=== PATIENT | male | born 1955 | race Caucasian/White ===

== ENCOUNTER 2020-02-25 11:54 | Outpatient (CLI) | payer MEDICARE, SELFPAY ==
--- NOTE | ~2020-02-25 | CT_ITS ---
EXAMINATION: CT brain wo con EXAM DATE: 02/25/2020 12:17 INDICATION: Headache getting more intense. States history of spinal meningitis 2010. TECHNIQUE: Spiral CT of the head was performed without contrast. Axial, coronal and sagittal images were reviewed. The dose-length product (DLP) for this examination was 605.33 mGy-cm. The exposure w as tailored according to patient size, and iterative reconstruction (ASIR) was used as additional dos e reduction technique. Comparison is made to prior examination from 12/10/2010. FINDINGS: There is no acute intraparenchymal hemorrhage. No evidence of intraparenchymal brain mass lesion. No evidence of acute infarction. There is no mass effect or midline shift. The ventricles are normal in size. There are no extra-axial collections. There are no acute calvarial fractures. T he orbits are unremarkable. Soft tissue is unremarkable. The visualized sinuses and mastoid air elaine ls are well aerated. IMPRESSION: 1. Unremarkable head CT examination. Reviewed, dictated and finalized at location A.
== END 2020-02-25 11:55 | disposition home or self-care (01) ==
PROVIDERS: PCP Family Medicine; Visit Provider Nurse Practitioner Family
DX: R51 Headache (principal); Z86.79 Personal history of other diseases of the circulatory system; Z86.61 Personal history of infections of the central nervous system
CPT/HCPCS: 70450

== ENCOUNTER 2022-01-16 19:50 | Emergency (ER) | payer MEDICARE, MEDICAID, SELFPAY ==
--- NOTE | ~2022-01-16 | XR_ITS ---
EXAM: XR forearm LT 2V DATE: 01/16/2022 19:59 HISTORY: tree limb fell onto left forearm . COMPARISON: Left wrist x-ray 02/22/2011. FINDINGS: Normal mineralization. No acute fracture or dislocation. No lytic or blastic lesion. Degen erative change at the elbow and wrist joints. Triceps enthesopathy. No erosion or periosteal change. Posterior soft tissue swelling. IMPRESSION: No acute osseous finding in the left forearm. Reviewed, dictated and finalized at location K.
--- NOTE | 2022-01-16 19:53 | ED.UPPEXIN ---
HPI - Extremity Injury (Upper) General Stated Complaint: INJURED L ARM Time Seen by Provider: 01/16/22 19:53 Source: patient Mode of arrival: ambulatory Limitations: no limitations History of Present Illness HPI narrative: Mr. Castro is a 66-year-old male patient presenting to the clinic today with complaints of left forearm pain after a 4 inch in diameter approx 70lb tree limb fell on his arm. He reports that he was cutting tree limbs when this fell on his arm as he was protecting his head. States that it instantly became swollen and painful to the left proximal forearm. He denies any wounds or cuts. He has an ice pack applied to the affected area. Related Data Home Medications Medication Instructions Recorded Confirmed aspirin 325 mg tablet 325 mg PO DAILY 06/03/19 01/01/22 Allergies Allergy/AdvReac Type Severity Reaction Status Date / Time levofloxacin Allergy Mild Rash Verified 01/01/22 12:30 [place] Seed Allergy Mild Rash Uncoded 01/01/22 12:30 Review of Systems Review of Systems: Pertinent positives per HPI. Patient denies any fever, chills, rash, headache, visual changes, dizziness, cough, runny nose, sore throat, shortness of breath, chest pain, palpitations, nausea, vomiting, diarrhea, constipation, abdominal pain, or any urinary issues. 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 There is no relevant family history pertinent to the patient complaint. Exam Narrative: General: Well-developed, well nourished, in no apparent distress Head: Normocephalic, atraumatic. Cardio: Regular rate and rhythm, s1 and s2 normal, no murmur appreciated. Resp: Clear to auscultation bilaterally, no rhonchi, rales, wheezing or rubs. Musculoskeletal: No deformity, swelling/bruising noted to the proximal left forearm, tender to palpation over the proximal left forearm, grossly normal range of motion, muscle strength strong and equal, peripheral pulse strong, no cyanosis, normal gait and station Course Course Emergency Course: Portions of this record may have been created with voice recognition software. Level of Care: Express Care Visit Vital Signs Vital signs: Vital signs reviewed MDM - Extremity Injury (Upper) MDM Narrative Medical decision making narrative: At the time of visit patient is resting comfortably on the exam table. X-ray was performed and was negative for any fracture or malalignment. I suspect patient has soft tissue injury/contusion to the left forearm. Marco wrap was applied and supportive measures were discussed with the patient he voiced understanding of discharge instructions and agrees to the treatment plan. Differential Diagnosis Differential diagnosis: Likely other (Forearm fracture, soft tissue injury, contusion) Imaging Data Attestation: I personally reviewed and interpreted this imaging study as follows: My impression: Negative for fracture of the left forearm Radiologist's impression: [facility] [id number]
[2022-01-16 20:04] VITALS: BP 118/75; PULSE 78; RESP 16; TEMP 36.8; O2SAT 97
== END 2022-01-16 20:19 | disposition home or self-care (01) ==
PROVIDERS: Emergency Provider Nurse Practitioner Family; PCP Family Medicine
DX: S50.12XA Contusion of left forearm, initial encounter (principal); W20.8XXA Other cause of strike by thrown, projected or falling object, initial encounter; E78.2 Mixed hyperlipidemia; G62.9 Polyneuropathy, unspecified; Z87.891 Personal history of nicotine dependence
CPT/HCPCS: 73090; 99213; G0463

== ENCOUNTER → 2022-09-23 14:31 | Outpatient (CLI) | payer MEDICARE, MEDICAID, SELFPAY ==
--- NOTE | ~2022-09-23 | XR_ITS ---
XR cervical spine min 6V DATE: 09/23/2022 15:36 INDICATION: Neck pain TECHNIQUE: Flexion, extension and neutral lateral views. AP and open-mouth projections. Swimmer view. COMPARISON: None FINDINGS: C1 and C2 are normally aligned and the odontoid process is intact. No fracture or dislocati on or locked facet or prevertebral soft tissue swelling. Cervical interspaces are relatively preserve d. No instability on flexion or extension. IMPRESSION: No significant abnormality Reviewed, dictated and finalized at location B. IMPRESSION: No significant abnormality
--- NOTE | ~2022-09-23 | XR_ITS ---
XR hip BI 2V w AP pelvis DATE: 09/23/2022 15:36 INDICATION: Chronic bilateral hip pain TECHNIQUE: AP pelvis. AP and lateral views of each hip. COMPARISON: None FINDINGS: No pelvic fracture or bone destruction is detected. The pubic symphysis and sacroiliac join ts are intact. No hip fracture or dislocation, avascular necrosis or bone destruction. Hip joint spaces are symmetri c and relatively preserved. IMPRESSION: No significant abnormality Reviewed, dictated and finalized at location B. IMPRESSION: No significant abnormality
--- NOTE | ~2022-09-23 | XR_ITS ---
XR knee RT 3V DATE: 09/23/2022 15:35 INDICATION: Chronic right knee pain TECHNIQUE: AP, lateral standing views, sunrise view COMPARISON: None FINDINGS: There is mild tricompartment osteoarthritis. There is enthesopathy of the superior pole of patella at the quadriceps tendon insertion. No fracture or dislocation or joint effusion. No periosteal reaction or bone destruction. No radiopaq ue intra-articular loose body or chondrocalcinosis. IMPRESSION: Mild tricompartment osteoarthritis Reviewed, dictated and finalized at location B.
--- NOTE | ~2022-09-23 | XR_ITS ---
XR knee LT 3V DATE: 09/23/2022 15:35 INDICATION: Chronic left knee pain TECHNIQUE: [place] and standing AP and lateral views COMPARISON: None FINDINGS: Mild suprapatellar knee joint effusion. There is mild tricompartment osteoarthritis. No fracture or dislocation, periosteal reaction or bone destruction. No radiopaque intra-articular lo ose body or chondrocalcinosis. IMPRESSION: Mild tricompartment osteoarthritis Knee joint effusion Reviewed, dictated and finalized at location B.
== END ==
PROVIDERS: PCP Family Medicine; Visit Provider Family Medicine
DX: M62.838 Other muscle spasm (principal); M17.0 Bilateral primary osteoarthritis of knee; M25.552 Pain in left hip; M25.551 Pain in right hip; M25.462 Effusion, left knee
CPT/HCPCS: 72052; 73521; 73562

== ENCOUNTER 2022-11-13 11:24 | Outpatient (CLI) | payer MEDICARE, MEDICAID, SELFPAY ==
--- NOTE | ~2022-11-13 | XR_ITS ---
EXAMINATION: XR chest 2V 11/13/2022 11:47 INDICATION: Acute bronchitis. Cough. PROCEDURE: 2 view chest COMPARISON: Comparison to multiple prior studies sequentially, with oldest reviewed study dated 12/25. FINDINGS: The lungs are clear. The cardiomediastinal silhouette is within normal limits. There are no pleural effusions. There is no pneumothorax suspected. IMPRESSION: 1: NO ACUTE CARDIOPULMONARY DISEASE. Reviewed, dictated and finalized at location B.
== END 2022-11-13 11:25 | disposition home or self-care (01) ==
PROVIDERS: PCP Family Medicine; Visit Provider Physician Assistant Medical
DX: J20.9 Acute bronchitis, unspecified (principal)
CPT/HCPCS: 71046

== ENCOUNTER 2023-01-30 07:15 | Day surgery (SDC) | payer MEDICARE, MEDICAID, SELFPAY ==
[2022-10-15 14:27] VITALS: BMI 32.6
[2022-11-12 10:11] VITALS: BMI 31.6
[2023-01-15 11:07] VITALS: BMI 31.6
[2023-01-30 07:35] VITALS: BP 131/82; PULSE 85; RESP 16; TEMP 36.8; O2SAT 96
--- NOTE | 2023-01-30 08:07 | WPDANESEPPF ---
Anes - Initial Pre Proc Eval Procedure: Operation Date: 01/30/23 09:00 Proposed Procedures p Diagnostic Colonoscopy - Humble Worrell MD Date/Time: 01/30/23 08:07 Surgeon: Humble Worrell MD Pre Op Diagnosis: Functional Diarrhea Patient Data Age: 67 Gender: M Height: 1.83 m Weight: 103.1 kg Last Vital Signs Temp 36.8 C 01/30/23 07:35 Pulse 85 01/30/23 07:35 Resp 16 01/30/23 07:35 BP 131/82 01/30/23 07:35 Pulse Ox 96 01/30/23 07:35 O2 Del Method Room Air 01/30/23 07:35 Allergies Allergy/AdvReac Type Severity Reaction Status Date / Time levofloxacin Allergy Mild Rash Verified 01/30/23 07:33 sunflower seed Allergy Mild Swelling Verified 01/30/23 07:33 of Lip/Tongue/Throat cefuroxime Allergy Unknown rash Verified 01/30/23 07:33 Home Medications Medication Instructions Recorded Confirmed Type aspirin 325 mg tablet 325 mg PO DAILY 06/03/19 01/30/23 History atorvastatin 80 mg tablet 80 mg PO DAILY #90 tabs 08/05/22 01/30/23 Rx multivitamin with minerals-folic 1 tablet PO DAILY 11/12/22 01/30/23 History acid 0.4 mg tablet lansoprazole 30 mg capsule,delayed 30 mg PO DAILY #30 caps 11/29/22 01/30/23 Rx release triamcinolone acetonide 0.1 % 1 applic topical TID #80 grams 01/02/23 01/30/23 Rx topical cream fexofenadine 180 mg tablet 180 mg PO DAILY 01/15/23 01/30/23 History hydrocodone 7.5 mg-acetaminophen 1 tablet PO Q6H PRN pain #120 tabs 01/28/23 01/30/23 Rx 325 mg tablet Patient hx anesthesia problems: none Family hx anesthesia problems: none Results Review: All pre-operative results and documents have been reviewed as part of the pre-operative evaluation. [facility] Past Medical History Medical History Bilateral hand swelling Bilateral hip pain Bilateral knee pain BMI 31.0-31.9,adult BMI 32.0-32.9,adult BMI 33.0-33.9,adult BMI greater than 30 Cervical pain Choking Chronic headache Degenerative lumbar disc Diabetes type 2, controlled Diarrhea Elevated alanine aminotransferase (ALT) level Elevated glucose Foot pain, bilateral Low testosterone Lump Mixed hyperlipidemia Muscle spasm Neuropathy Tremor of both hands Family History Family History Father Diabetes mellitus Carcinoma of colon Malignant neoplasm of prostate Bone cancer Mother Leukemia Sibling Bone cancer Other Cerebrovascular accident Family history of arthritis Family history of coronary artery disease Hypertension Social History Social History Smoking packs per day: 1.5 Smoking cigarettes per day: 30.0 Years smoked: 15 Smoking pack-years: 22.50 Smoking status: Former smoker Tobacco type: cigarettes Second hand tobacco smoke exposure: No Smoking end date: 06/30/10 Alcohol intake: never Substance use: never Substance use type: does not use Lack of Transportation: No Lack of Food: Never True Current Housing: I Have Housing Concerned About Future Housing: No Difficulty Paying Gas/Electric Bills: No Difficulty Paying for Meds: No Currently Unemployed: No Education: High School Diploma/GED Difficulty w/ Childcare or Family Care: No Living arrangements: with family 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
--- NOTE | 2023-01-30 08:37 | PM.HPGS ---
History of Present Illness History of Present Illness Consent: Risks, benefits, and alternatives have been discussed and questions answered. Patient agrees to proceed with procedure. Chief complaint: Functional Diarrhea Narrative: Nehemiah Castro Sr. is a 67 year old male here for screening colonoscopy, last one more than 10 years ago. Review of Systems Constitutional: Constitutional: Denies headache(s) and Denies weakness Eyes: Eyes: Denies blurry vision ENT: Reports Normal hearing present, Denies headache(s) and Denies neck pain Cardiovascular: Cardiovascular: Denies chest pain and Denies dyspnea Respiratory: Respiratory: Denies dyspnea Gastrointestinal: Gastrointestinal: Reports no additional gastrointestinal complaints Genitourinary: Genitourinary: Denies dysuria Musculoskeletal: Musculoskeletal: Denies neck pain Integumentary/Breasts: Skin/Breast: Denies dry skin Neurologic: Reports Normal hearing present, Denies headache(s) and Denies weakness Psychiatric: Psychiatric: Denies anxiety Endocrine: Endocrine: Denies change in body appearance Hematologic/Lymphatic: Hematologic/Lymphatic: Denies easy bleeding Allergic/Immunologic: Allergic/Immunologic: Denies urticaria PMFSH Past Medical History Medical History (Updated 01/30/23 @ 08:38 by Humble Worrell MD) Bilateral hand swelling Bilateral hip pain Bilateral knee pain BMI 31.0-31.9,adult BMI 32.0-32.9,adult BMI 33.0-33.9,adult BMI greater than 30 Cervical pain Choking Chronic headache Colon cancer screening Degenerative lumbar disc Diabetes type 2, controlled Diarrhea Elevated alanine aminotransferase (ALT) level Elevated glucose Foot pain, bilateral Low testosterone Lump Mixed hyperlipidemia Muscle spasm Neuropathy Tremor of both hands Family History Family History Father Diabetes mellitus Carcinoma of colon Malignant neoplasm of prostate Bone cancer Mother Leukemia Sibling Bone cancer Other Cerebrovascular accident Family history of arthritis Family history of coronary artery disease Hypertension Social History Social History Smoking packs per day: 1.5 Smoking cigarettes per day: 30.0 Years smoked: 15 Smoking pack-years: 22.50 Smoking status: Former smoker Tobacco type: cigarettes Second hand tobacco smoke exposure: No Smoking end date: 06/30/10 Alcohol intake: never Substance use: never Substance use type: does not use Lack of Transportation: No Lack of Food: Never True Current Housing: I Have Housing Concerned About Future Housing: No Difficulty Paying Gas/Electric Bills: No Difficulty Paying for Meds: No Currently Unemployed: No Education: High School Diploma/GED Difficulty w/ Childcare or Family Care: No Living arrangements: with family Occupation/Education: retired 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 Gender identity (if verbalized by the patient): Male Spiritual care concerns: No Meds Home Medications and Allergies Home Medications Medication Instructions Recorded Confirmed Type aspirin 325 mg tablet 325 mg PO DAILY 06/03/19 01/30/23 History atorvastatin 80 mg tablet 80 mg PO DAILY #90 tabs 08/05/22 01/30/23 Rx multivitamin with minerals-folic 1 tablet PO DAILY 11/12/22 01/30/23 History acid 0.4 mg tablet lansoprazole 30 mg capsule,delayed 30 mg PO DAILY #30 caps 11/29/22 01/30/23 Rx release triamcinolone acetonide 0.1 % 1 applic topical TID #80 grams 01/02/23 01/30/23 Rx topical cream fexofenadine 180 mg tablet 180 mg PO DAILY 01/15/23 01/30/23 History hydrocodone 7.5 mg-acetaminophen 1 tablet PO Q6H PRN pain #120 tabs 01/28/23 01/30/23 Rx 325 mg tablet Allergies Allergy/AdvReac Type Severity Reaction Status Date / Time levofloxacin Allergy Mild Rash
[2023-01-30] MEDS: LACTATED RINGERS 1,000 ML 150 ML IV CONT (08:43)
[2023-01-30 08:59] VITALS: BP 105/66; PULSE 77; RESP 16; O2SAT 94
[2023-01-30 09:09] VITALS: BP 106/66; PULSE 73; RESP 16; O2SAT 97
[2023-01-30 09:19] VITALS: BP 126/78; PULSE 70; RESP 15; O2SAT 99
--- NOTE | 2023-01-30 09:42 | WPDANESPN ---
Anes - Prog Note Post-Op Date/Time: 01/30/23 09:42 Cardiovascular status: normal Respiratory status: normal Airway patency: baseline Mental status: baseline Post-Op hydration status: normal Vital Signs: Last Vital Signs Temp 36.8 C 01/30/23 07:35 Pulse 70 01/30/23 09:19 Resp 15 01/30/23 09:19 BP 126/78 01/30/23 09:19 Pulse Ox 99 01/30/23 09:19 O2 Del Method Room Air 01/30/23 09:19 Pain Score (VAS): 0/10 I/O: Intake & Output 01/29/23 01/30/23 01/30/23 23:59 07:59 15:59 Intake Total 800 Balance 800 Patient Feedback: Patient satisfied with anesthetic care.
== END 2023-01-30 09:30 | disposition home or self-care (01) ==
PROVIDERS: PCP Family Medicine; Visit Provider Internal Medicine Gastroenterology
PROC: 0DJD8ZZ Inspection of Lower Intestinal Tract, Via Natural or Artificial Opening Endoscopic (ICD-10-PCS; CPT 45378; principal; 2023-01-30 09:00)
DX: Z12.11 Encounter for screening for malignant neoplasm of colon (principal); K64.8 Other hemorrhoids
CPT/HCPCS: 45378

== ENCOUNTER → 2023-03-07 14:25 | Outpatient (CLI) | payer MEDICARE, MEDICAID, SELFPAY ==
--- NOTE | ~2023-03-07 | XR_ITS ---
EXAMINATION: XR hand LT min 3V DATE: 03/07/2023 14:47 INDICATION: Left hand effusion TECHNIQUE: Posteroanterior, oblique and lateral views of the left hand were obtained. COMPARISON: 02/22/2011 FINDINGS: Old healed fracture deformity of the left fifth metacarpal. Additional old fractures of the third and fourth metacarpals of healed with essentially no residual deformity. Alignment is otherwise normal. Polyarticular osteoarthritis, moderate severity at the distal radioulnar and first interphalangeal erasmo ints, mild to moderate severity at the first carpometacarpal and remaining interphalangeal joints and mild at the radiocarpal, triscaphe and at the midcarpal joints. No erosions to suggest inflammatory arthritis. Soft tissues are unremarkable. IMPRESSION: 1. Mild to moderate polyarticular osteoarthritis at the left hand and wrist. No acute osseous abnorma lity. Reviewed, dictated and finalized at location A. IMPRESSION: 1. Mild to moderate polyarticular osteoarthritis at the left hand and wrist. No acute osseous abnormality.
== END ==
PROVIDERS: PCP Family Medicine; Visit Provider Family Medicine
DX: M25.442 Effusion, left hand (principal); M19.042 Primary osteoarthritis, left hand
CPT/HCPCS: 73130

== ENCOUNTER 2023-03-21 13:15 | Outpatient (RCR) | payer MEDICARE, MEDICAID, SELFPAY ==
--- NOTE | 2023-03-14 14:55 | OPREHPOC ---
Outpatient Therapy Plan of Care This is a Multidisciplinary Plan of Care that may contain components documented by all disciplines (PT, OT, and ST.) PT Problem 1 PT Problem #1 Knowledge Deficit PT Goal 1 Goal [place] with home lower abdominal activation program Target Visit 4 PT Problem 2 PT Problem #2 Impaired Flexibility PT Goal 1 Goal Demonstrate minimal piriformis garcia to improve hip functional rotation Target Visit 4 PT Problem 3 PT Problem #3 Impaired Strength PT Goal 1 Goal Improve lower abdominal strength to 4-/5 to improve pelvic control Target Visit 4
--- NOTE | 2023-03-14 14:56 | PTOPEVAL1 ---
Assessment and note entered by Joshua May, PT Evaluation Information Assessment Status Evaluation Diagnosis Disc degeneration Lumbar, seperation of muscle Onset 2008 Subjective Information Reports that he was diagnosed with a diastases recti on 03/06/23. This is not painful but doctor was concerned. He is retired but is very active around his house. He was not too personally concerned with his issue, but MD and wanted him to get it checked out. Reported Pain Level Pain Score 0: Self Report Assessment PT Clinical Summary Patient presents with limited hip mobility and poor abdominal control leading to increased abdominal stress with core activation and lifting. Will benefit from skilled therapy to address transverse abdominis activation, hip ROM, and functional lifting mechanics. Required extensive education of first visit for proper exercise performance. Plan of Care Interventions Gait Training,Manual Therapy,Neuro Re-education, Patient/Caregiver Education,Therapeutic Activities, Therapeutic Exercise PT Services Indicated Yes Treatment Frequency and 1x/week for 4 weeks Duration These treatments will address the objective and functional deficits as defined above. The patient will be advanced safely and appropriately in order for the patient to progress towards his/her prior level of function. Additional exercises will be introduced and as well as a comprehensive home exercise program upon discharge, if needed, ?to ensure carryover of functional gains achieved in the clinic. This treatment plan has been reviewed and agreement upon by the patient.
--- NOTE | 2023-03-28 11:23 | PCPTNOTE ---
Pt came to therapy appt. but was too ill to do session but was afraid he was going to be charged. Pt's appt was cancelled today.
--- NOTE | 2023-04-04 10:32 | PCPTNOTE ---
Patient called to cancel this date due to illness.
--- NOTE | 2023-04-15 14:15 | PCPTNOTE ---
Patient cancelled today's appointment due to illness.
--- NOTE | 2023-06-10 13:24 | PTOPDC ---
Assessment and note entered by Joshua May, PT Evaluation Information Assessment Status Discharge - Pt Not Present Diagnosis Disc degeneration Lumbar, separation of muscle Onset 2008 Subjective Information Reports that he was diagnosed with a diastases recti on 03/06/23. This is not painful but doctor was concerned. He is retired but is very active around his house. He was not to0o personally concerned with his issue, but MD and wanted him to get it checked out. Assessment PT Clinical Summary Patient attended 2 therapy sessions and failed to return at this time. Patient will be discharged from skilled therapy. Please see last treatment note for discharge status. Plan of Care PT Services Indicated No
== END 2023-06-10 16:05 | disposition home or self-care (01) ==
LOC: ANHGOSHPT 13:15
PROVIDERS: PCP Family Medicine; Visit Provider Family Medicine
DX: M62.08 Separation of muscle (nontraumatic), other site (principal)
CPT/HCPCS: 97110; 97112; 97140; 97161

== ENCOUNTER 2023-05-04 16:43 | Emergency (ER) | payer OTHER, MEDICARE, MEDICAID, SELFPAY ==
[2023-05-04 17:04] VITALS: BP 125/69; PULSE 77; RESP 16; TEMP 36.2; O2SAT 96
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
== END 2023-05-04 17:47 | disposition short-term general hospital (02) ==
PROVIDERS: Emergency Provider Nurse Practitioner Family; PCP Family Medicine
DX: R07.9 Chest pain, unspecified (principal); V23.49XA Other motorcycle driver injured in collision with car, pick-up truck or van in traffic accident, initial encounter; Z87.891 Personal history of nicotine dependence; M51.36 Other intervertebral disc degeneration, lumbar region; E78.2 Mixed hyperlipidemia; E11.40 Type 2 diabetes mellitus with diabetic neuropathy, unspecified; Z79.82 Long term (current) use of aspirin
CPT/HCPCS: 99212; G0463

== ENCOUNTER 2023-05-04 18:12 | Emergency (ER) | payer OTHER, MEDICARE, MEDICAID, SELFPAY ==
--- NOTE | ~2023-05-04 | CT_ITS ---
Non-contrast Head CT History: Head injury COMPARISON: 02/25/2020 Technique: Axial non-contrast imaging of the brain was performed. Dose reduction technique was used on this scan by utilizing automated exposure control and iterative reconstruction technique. The dose -length product (DLP) was 681.00 mGy-cm. Findings: There is no evidence of intracranial hemorrhage, mass lesion, or acute infarct. Brain par enchyma appears normal. The ventricles and subarachnoid spaces are normal in size. The calvarium ap pears normal. The visualized paranasal sinuses and mastoid air cells are clear. Impression: No significant abnormality seen. Reviewed, dictated and finalized at location . UDER OPERATOR VERTICAL Impression: No significant abnormality seen.
--- NOTE | ~2023-05-04 | CT_ITS ---
Noncontrast CT scan of the cervical spine Technique: Multiple contiguous axial [address] images of the cervical spine were obtained and rec onstructed in 2D sagittal and coronal planes on the acquisition scanner. Dose reduction technique was used on this scan by utilizing automated exposure control, adjustment of the mA and/or kV according to patient size. The dose-length product (DLP) was 441.68 mGy-cm. Clinical History: Pain Findings: No fracture or subluxation seen in the cervical spine. There is a comminuted, essentially n ondisplaced fracture involving the posterior right first rib. The intervertebral disc spaces are pres erved. No prevertebral soft tissue swelling. Impression: No fracture or subluxation of the cervical spine. Comminuted, nondisplaced fracture the posterior right first rib. Reviewed, dictated and finalized at [facility]. MOLDER Impression: No fracture or subluxation of the cervical spine. Comminuted, nondisplaced fracture the posterior right first rib.
--- NOTE | ~2023-05-04 | CT_ITS ---
Clinical Indication: Trauma CT Scan of the Chest, Abdomen, Pelvis, Thoracic spine, and Lumbar spine without Contrast: Technique: Contiguous sections were acquired throughout the chest, abdomen, and pelvis, and the thora cic and lumbar spine, without IV contrast initiation. Dose reduction technique was used on this scan by utilizing automated exposure control and iterative reconstruction technique. The dose-length produ ct (DLP) was 1733.65 mGy-cm. Chest/abdomen/pelvis Findings: There is no evidence of any significant mediastinal, hilar or axillary lymphadenopathy. The mediastin al soft tissues appear normal. There is no evidence of pleural or pericardial effusion. The lungs are clear. No pulmonary nodules or infiltrates are noted. Nondisplaced fracture the posterior right first rib noted. The liver, spleen, pancreas, gallbladder, left adrenal gland, and kidneys are within normal limits. S mall right adrenal lipoma noted. No evidence of aortic aneurysm. No lymphadenopathy. No bowel obstruction or bowel wall thickening. There is no evidence to suggest acute appendicitis. Urinary bladder is unremarkable. Prostate gland and seminal vesicles are unremarkable. No pelvic mass seen. No ascites. Thoracic spine: There is no fracture or subluxation of the thoracic spine. Vertebral bodies maintain normal height and alignment. Intervertebral disc spaces are preserved. Flowing anterior marginal oste ophytes are present from T6 through T10, compatible with DISH. No significant disc bulge or herniation evident. No definite spinal canal stenosis or cord compressio n identified. Lumbar spine: There is no fracture or subluxation lumbar spine. Vertebral bodies maintain normal heig ht and alignment. There is advanced degenerative disc narrowing at L5-S1. There is mild degenerative disc narrowing at L1-L2. Remaining disc spaces are preserved. At L1-L2, there is no disc bulge or herniation. There is minimal facet arthropathy. No central canal stenosis or definite neural foraminal narrowing. At L2-L3, there is mild disc bulge with moderate to advanced facet arthropathy. No diogo central laith l stenosis or neural foraminal narrowing. At L3-L4, there is mild disc bulge with moderate to advanced facet arthropathy. No diogo central laith l stenosis. There is mild right neural foraminal narrowing. At L4-L5, there is mild disc bulge with moderate to advanced facet arthropathy. No central canal sten osis. There is mild to moderate left neural foraminal narrowing, and moderate right neural foraminal narrowing. L5-S1, there is minimal disc bulge. No central canal stenosis. There is severe left neural foraminal narrowing, and moderate to severe right neural foraminal narrowing. Impression: Nondisplaced fracture the posterior right first rib. No other acute posttraumatic abnormality seen in the chest, abdomen, pelvis, or thoracolumbar spine. Degenerative spondylosis of the lumbar spine, as detailed above. Reviewed, dictated and finalized at [facility]. STYLIST Impression: Nondisplaced fracture the posterior right first rib. No other acute posttraumatic abnormality seen in the chest, abdomen, pelvis, or thoracolumbar spine. Degenerative spondylosis of the lumbar spine, as detailed above.
[2023-05-04 18:22] VITALS: BP 127/66; PULSE 77; RESP 20; TEMP 36.7; O2SAT 98
[2023-05-04 20:42] VITALS: BP 133/72; PULSE 77; RESP 17; O2SAT 97
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
--- NOTE | 2023-05-04 21:17 | ECG_ITS ---
Measurements Intervals [place] Rate: 74 P: 18 LA: 153 QRS: 32 QRSD: 86 T: 35 QT: 394 QTc: 439 Interpretive Statements SINUS RHYTHM BASELINE ARTIFACT- I, II, III, AVR, AVF NORMAL ECG NO PREVIOUS ECG AVAILABLE FOR COMPARISON Electronically Signed On 05-05-2023 6:44:41 AUTOMATED TELLER MANAGER by Travis Kinney D.O.
[2023-05-04 22:34] VITALS: BP 158/82; PULSE 77; RESP 14; O2SAT 97
== END 2023-05-05 00:20 | disposition home or self-care (01) ==
PROVIDERS: Emergency Provider Physician Assistant; PCP Family Medicine
DX: S22.31XA Fracture of one rib, right side, initial encounter for closed fracture (principal); E11.9 Type 2 diabetes mellitus without complications; E78.2 Mixed hyperlipidemia; Z79.82 Long term (current) use of aspirin; Z79.899 Other long term (current) drug therapy; Z87.891 Personal history of nicotine dependence; V23.49XA Other motorcycle driver injured in collision with car, pick-up truck or van in traffic accident, initial encounter
CPT/HCPCS: 70450; 71250; 72125; 72128; 72131; 74176; 93005; 99284

== ENCOUNTER 2023-07-03 13:26 | Outpatient (CLI) | payer MEDICARE, SELFPAY ==
--- NOTE | ~2023-07-03 | XR_ITS ---
XR wrist RT min 3V DATE: 07/03/2023 14:09 INDICATION: Pain. Evaluate for inflammatory arthritis TECHNIQUE: 5 views COMPARISON: None FINDINGS: No fracture, dislocation, periosteal reaction or bone destruction, erosive change or chondr ocalcinosis. Mild osteophyte is at the first carpometacarpal joint. IMPRESSION: Mild osteoarthritis at first carpometacarpal joint Reviewed, dictated and finalized at location L. HER ASSISTANT
--- NOTE | ~2023-07-03 | XR_ITS ---
XR wrist LT min 3V DATE: 07/03/2023 14:08 INDICATION: Pain. Evaluate for inflammatory arthritis. TECHNIQUE: 4 views COMPARISON: 03/07/2023 left hand FINDINGS: Mild spurring at the radial ulnar joint. There is mild periarticular spurring at the first carpometacarpal joint. No fracture or dislocation, periosteal reaction or bone destruction is detected. No erosive change or chondrocalcinosis. IMPRESSION: Mild osteoarthritis Reviewed, dictated and finalized at location L. GE PACKER IMPRESSION: Mild osteoarthritis
--- NOTE | ~2023-07-03 | XR_ITS ---
EXAMINATION: XR hand BI arthritis min 3V DATE: 07/03/2023 14:09 INDICATION: Bilateral hand pain. Arthritis. TECHNIQUE: 4 views of right hand and 4 views of left hand were obtained. COMPARISON: Left hand radiographs 03/07/2023 FINDINGS: RIGHT HAND: Bone alignment is normal. No fracture. There is mild osteoarthritis of first carpometacar pal joint and most of the interphalangeal joints. There is moderate osteoarthritis of second and thir d distal interphalangeal joints. There is a 4 mm radiopaque foreign body dorsal to base of first dist al phalanx. LEFT HAND: Bone alignment is normal. No fracture. There is an old healed fracture of neck of fifth me tacarpal. There is mild osteoarthritis of triscaphe joint, first carpometacarpal joint, first, second , and fourth metacarpophalangeal joints, and most of the interphalangeal joints. There is moderate os teoarthritis of first interphalangeal joint. IMPRESSION: 1. Polyarticular osteoarthritis. No evidence of inflammatory arthropathy. Reviewed, dictated and finalized at location E. THE ROAD DRIVER
--- NOTE | ~2023-07-03 | XR_ITS ---
XR elbow RT min 3V DATE: 07/03/2023 14:08 INDICATION: Polyarthralgia TECHNIQUE: 4 views COMPARISON: None FINDINGS: Mild dorsal olecranon process spurring. There is osteoarthritic joint space narrowing and s purring at the elbow joint. No fracture or dislocation or joint effusion. No periosteal reaction or bone destruction. IMPRESSION: Osteoarthritis of elbow joint Mild dorsal olecranon process spurring Reviewed, dictated and finalized at location L. BLACKSMITH
--- NOTE | ~2023-07-03 | XR_ITS ---
XR elbow LT min 3V DATE: 07/03/2023 14:08 INDICATION: Polyarthralgia. Left elbow pain. TECHNIQUE: 4 views COMPARISON: None FINDINGS: Prominent dorsal olecranon process spur. There is osteoarthritic spurring and joint space narrowing at the elbow joint consistent with osteoar thritis. No recent fracture or dislocation or joint effusion, periosteal reaction or bone destruction is detected. IMPRESSION: Osteoarthritis Dorsal olecranon process spur Reviewed, dictated and finalized at location L. D HISTORY TEACHER
== END 2023-07-03 13:27 ==
PROVIDERS: PCP Family Medicine
DX: M19.042 Primary osteoarthritis, left hand (principal); M19.041 Primary osteoarthritis, right hand; M19.032 Primary osteoarthritis, left wrist; M19.031 Primary osteoarthritis, right wrist; M19.022 Primary osteoarthritis, left elbow; M19.021 Primary osteoarthritis, right elbow; M25.722 Osteophyte, left elbow; M25.721 Osteophyte, right elbow
CPT/HCPCS: 73080; 73110; 73130

== ENCOUNTER → 2023-07-28 14:17 | Outpatient (REF) | payer MEDICARE, MEDICAID, SELFPAY | LOC: ANHLAB 14:17 | PROVIDERS: PCP Family Medicine; Visit Provider Plastic Surgery | DX: S60.559A Superficial foreign body of unspecified hand, initial encounter (principal) | CPT/HCPCS: 88305; 88342 ==

== ENCOUNTER 2023-12-17 09:19 | Outpatient (CLI) | payer MEDICARE, MEDICAID, SELFPAY ==
[2023-12-17 12:44] LABS: Hematocrit 46.4 % (42.0-52.0); Hemoglobin 15.2 g/dL (14.0-18.0); Mean Corpuscular HGB Conc 32.8 g/dl (32-36); Mean Corpuscular Hemoglobin 29.9 pg (26-34); Mean Corpuscular Volume 91.2 fl (80-100); Mean Platelet Volume 10.4 fl (7.4-10.4); Platelet Count Result 231 k/mm3 (150-375); Red Blood Count 5.09 M/mm3 (4.6-6.20); Red Cell Distribution Width 12.1 % (11.5-14.5); White Blood Count 6.2 K/mm3 (4.5-10.0)
[2023-12-17 13:14] LABS: Alanine Aminotransferase 65 U/L (6-50); Albumin Level 4.1 g/dL (3.5-5.1); Alkaline Phosphatase 75 U/L (38-126); Anion Gap 6 mmol/L (4-12); Aspartate Amino Transferase 58 U/L (17-59); Bilirubin,Total 0.5 mg/dL (0.2-1.3); Blood Urea Nitrogen 18 mg/dL (9-20); Calcium 8.8 mg/dL (8.4-10.2); Carbon Dioxide 29 mmol/L (22-30); Chloride 105 mmol/L (98-107); Cholesterol 168 mg/dL (0-200); Estimated Glomerular Filt Rate > 60; Glucose 137 mg/dL (65-110); HDL Direct 26 mg/dL; Potassium 4.1 mmol/L (3.4-5.0); Sodium 140 mmol/L (137-145); Triglycerides 350 mg/dL (<150)
[2023-12-17 13:25] LABS: LDL Cholesterol Direct 76 mg/dL
[2023-12-17 13:44] LABS: Creatinine Urine 217.6 mg/dL
[2023-12-17 13:46] LABS: MALB Creatinine Ratio 3.2 mg/g (0-30); Microalbumin Urine Random 6.9 mg/L (0-16.7)
[2023-12-17 13:49] LABS: Prostate Specific Antigen 3.6 ng/mL (< OR = 4.0)
[2023-12-21 13:38] LABS: Testosterone Free 40.7 pg/mL (35.0-155.0); Testosterone Total 325 ng/dL (250-1100)
== END 2023-12-17 09:20 | disposition home or self-care (01) ==
PROVIDERS: PCP Family Medicine; Visit Provider Family Medicine
DX: Z12.5 Encounter for screening for malignant neoplasm of prostate (principal); R79.89 Other specified abnormal findings of blood chemistry; E78.2 Mixed hyperlipidemia; E11.9 Type 2 diabetes mellitus without complications; G62.9 Polyneuropathy, unspecified; R25.1 Tremor, unspecified; Z13.220 Encounter for screening for lipoid disorders
CPT/HCPCS: 36415; 80048; 80061; 80076; 82043; 82607; 84153; 84402; 84403; 84443; 85027; G0103

== ENCOUNTER 2024-08-30 16:15 | Outpatient (CLI) | payer MEDICARE, MEDICAID, SELFPAY | END 2024-08-30 16:16 | disposition home or self-care (01) | LOC: MICIMG 16:18 | PROVIDERS: PCP Family Medicine; Visit Provider Family Medicine | DX: K92.0 Hematemesis (principal) | CPT/HCPCS: 71046 ==

== ENCOUNTER 2024-09-21 00:33 | Day surgery (SDC) | payer MEDICARE, MEDICAID, SELFPAY ==
[2024-09-10 14:37] VITALS: BMI 32.8
--- NOTE | 2024-09-10 15:01 | PC.NURSE ---
Report to the Outpatient Waiting Room, entrance under the green pavilion located off [facility], at time __9:15AM___ on date ___09/21/24____. Planned Procedure Time: __11:15AM____.? Time changes happen often and if your time is changed the preop area will call you the afternoon before. - You and your visitor will be asked to self-screen and do not enter if you have any COVID symptoms. Please call surgeon if you need to reschedule. - A mask is optional within the hospital at this time. Patients may have clear liquids (water, carbonated beverages, clear teas, apple juice) until 3 hours prior to surgery (8:15AM) with a maximum of 20 ounces. - No food from midnight until time of surgery and no smoking, or chewing tobacco (or any form of nicotine). No chewing gum, candy or mints. Take only the following medications with a SIP of water on the morning of surgery: ____HYDROCODONE NEEDED FOR PAIN DO NOT STOP ANY OF YOUR OTHER PRESCRIPTION MEDICATIONS PRIOR TO SURGERY EXCEPT THE FOLLOWING Hold all vitamins and supplements for 3 days per anesthesiologist.- LAST DOSE 09/17/24 Medications to discontinue per physician __HOLD ASPIRIN 7 DAYS PRE-OP PER DR MAIN Date to take last dose 09/17/24 Please no make-up, nail thai, hairspray, perfume, deodorant, or body powder the day of surgery.? No jewelry (including any body piercings) or valuables the day of surgery, leave them at home.? Please take a shower or bath the night before, or the morning of, surgery with an antibacterial soap.? Wear comfortable, loose fitting clothing.? - Jewelry must be removed prior to entering the operating room.? Rings and piercings that are not removed may be cut off. - The hospital will not accept responsibility for valuables.? - Please leave all valuables, including medications, at home the day of surgery. If you are going home after surgery, a licensed tour bus driver/guide must drive you home.? - NO public transportation without another adult if you receive anesthesia. - We recommend that an adult stay with you for 24 hours following discharge. - We also recommend that you do not drive, make important decision, drink alcoholic beverages, or take any drugs that were not prescribed by your health care provider for at least 24 hours after your discharge time. Follow any additional instructions given to you from your surgeon. Telephone instructions given to ___PATIENT and asked if any additional questions and then verbalized understanding. Patient advised to call surgeon office or pre surgery nurse liaison [phone] if any additional questions.
--- OUTSIDE RECORDS SUMMARY | 2024-09-21 00:36 | XMS_ITS | Encounter Summary ---
Author Organization [facility] Address 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
--- OUTSIDE RECORDS SUMMARY | 2024-09-21 00:36 | XMS_ITS | Encounter Summary ---
Author Organization [facility] Address 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
--- OUTSIDE RECORDS SUMMARY | 2024-09-21 00:36 | XMS_ITS | Clinical Summary ---
Author Organization [facility] Address [facility] [place] [address] Care Team Providers Care Stain Maker Name Role Phone Manish Hamlin MD Primary Care Provider [phone] Allergies Active Allergy Reactions Criticality Noted Date Comments Levofloxacin Hives Medium 12/03/2023 [place] Oil Hives Medium 12/03/2023 Seeds Medications aspirin EC (ECOTRIN) 81 MG tablet Take 1 tablet (81 mg total) by mouth daily. Active HYDROcodone-jarred taminophen (NORCO) 5-325 MG tablet Take 1 tablet by mouth every 6 (six) hours as needed for Pain. Active atorvastatin (LIPITOR) 80 MG tablet Take 1 tablet (80 mg total) by mouth daily. Active lansoprazole (PREVACID) 30 MG capsule Take 1 capsule (30 mg total) by mouth daily. Active multi vitamin/mineral s (THERA-M ENHANCED) tablet Take 1 tablet by mouth daily. Active Family History Medical History Relation Comments Bone cancer Brother Diabetes Brother Bone cancer Father Colon Cancer Father Diabetes Father Heart Disease Father Hypertension Father Prostate Cancer Father Skin cancer Maternal Grandmother Leukemia Mother Hypertension Paternal Grandfather Stroke Paternal Grandmother Diabetes Paternal Uncle Heart Disease Paternal Uncle Relation Status Comments Brother Father Maternal Grandmother Mother Paternal Grandfather Paternal Grandmother Paternal Uncle Social History Tobacco Use Types Packs/Day Years Used Date Smoking Tobacco: Former Cigarettes Q uit: 2010 Smokeless Tobacco: Never Tobacco Cessation:Counseling Given: No Alcohol Use Standard Drinks/Week Comments Yes 0 (1 standard drink = 0.6 oz pur e alcohol) Liquor, socially PHQ-2 Answer Date Recorded Patient Health Questionnaire-2 Score 0 01/28/2024 Sex and Gender Information Value Date Recorded Sex Assigned at Not on file Legal Sex Male 5:02 PM CDT Gender Identity Not on file Sexual Orientation Not on file Last Filed Vital Signs Vital Sign Reading Time Taken Comments Blood Pressure 136/73 01/28/2024 10:58 AM CDT Pulse 68 01/28/2024 10:58 AM CDT Temperature - - Respiratory Rate - - Oxygen Saturation 98% 01/28/2024 10:58 AM CDT Inhaled Oxygen Concentration - - Weight 107 kg (236 lb) 01/28/2024 10:58 AM CDT Height 182.9 cm (6') 12/03/2023 10:25 AM CDT Body Mass Index 32.01 12/03/2023 10:25 AM CDT Plan of Treatment Health Maintenance Due Date Last Done Comments Colorectal Cancer Screening Colonoscopy (10 Years) 1954 Hepatitis C 1972 DTaP, Tdap and Td Vaccines (1 - Tdap) 1973 Zoster Vaccines (1 of 2) 2004 AAA SCREENING 10/25/2019 Annual Medicare Wellness Visit 10/25/2019 Pneumococcal Vaccine: 65+ Years (2 of 2 - PCV) 04/15/2021 04/15/2020 COVID-19 Vaccine (1 - season) 2024 Influenza Adult (#1) 2024 04/15/2020, 05/07/2019, 05/01/2018, Additional history exists PHQ-2 (Physician [place]) 06/30/2024 01/28/2024 PHQ-2 (Physician [place]) 01/27/2025 01/28/2024 RSV Immunization or 60+ Years (1 - 1-dose 75+ series) 2029 Meningococcal B Vaccine Aged Out No l onger eligible based on patient's age to complete this topic Meningococcal Vaccine Aged Out No gunjan jaimie eligible based on patient's age to complete this topic RSV Immunizations Under 20 Months Aged Out No longer eligible based on patient's age to complete this topic Insurance [facility] Member Subscriber Plan / Payer (Ef fective 2023-Present) Name:Nehemiah Castro Relation to Subscriber:Self Name:Nehemiah Castro Payer ID:[id number] (NAIC) Type:Not on file Address: [place] [id number] Care Teams Stain Maker Relationship Specialty Start Date End Date Manish Hamlin MD [address] [place] [address] PCP - General FAMILY PRACTICE 12/03/23
--- OUTSIDE RECORDS SUMMARY | 2024-09-21 00:36 | XMS_ITS | Clinical Summary ---
Author Organization [facility] Address [address] 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 Gender Identity Not on file Sexual Orientation Not on file Plan of Treatment Health Maintenance Due Date Last Done Comments DTAP/TDAP/TD VACCINES (1 - Tdap) 1973 COLORECTAL SCREENING 10/25/1999 Colorectal Cancer Screening 10/25/1999 FIT-DNA Q 3 years 10/25/1999 FIT/FOBT Q 1 year 10/25/1999 Flex Sig/CT Colonography Q 5 years 10/25/1999 PNEUMOCOCCAL VACCINE 50+ YEARS (1 of 1 - PCV) 10/25/19 05 ZOSTER VACCINE (1 of 2) 2004 INFLUENZA VACCINE (#1) 2024 RSV VACCINE (60+ or ) (1 - 1-dose 75+ series) 2029 Care Teams Gage Designer Relationship Specialty Start Date End Date Conversion, History PCP - General 07/29/00
--- NOTE | 2024-09-21 08:04 | WPDHPUPDATE1 ---
History and Physical Update Update Date/Time: 09/21/24 08:04 History and Physical has been reviewed, including an updated exam of the patient. There are NO changes in the patient's condition. Risks, benefits, and alternatives have been discussed and questions answered. Patient agrees to proceed with procedure. proceed with uronav us and prostate biopsy
[2024-09-21 09:41] LABS: Add Urine Microscopic? NO; Appearance Urine Clear (Clear); Bilirubin Urine Negative (Negative); Blood Urine Negative (Negative); Color Urine Yellow (Yellow); Glucose Urine UA Negative (Negative); Ketones Urine Negative (Negative); Leukocyte Esterase Ur Negative LEU/UL (Negative); Nitrate Urine Negative (Negative); Protein Urine Negative (Negative); Specific Grav Ur 1.016 (1.001-1.035); Urobilinogen Urine 0.2 mg/dL (<2.0); pH Urine 5.5 (5.0-9.0)
[2024-09-21 10:00] VITALS: BP 140/79; PULSE 71; RESP 14; TEMP 36.2; O2SAT 98; BMI 32.3
--- NOTE | 2024-09-21 10:17 | WPDANESEPPF ---
Anes - Initial Pre Proc Eval Procedure: Operation Date: 09/21/24 11:15 Proposed Procedures p Trans Rectal Ultrasound Fusion Guided Prostate Biopsy - Samy Dickey MD Date/Time: 09/21/24 10:17 Surgeon: Samy Dickey MD Pre Op Diagnosis: elevated PSA Patient Data Age: 68 Gender: M Height: 1.83 m Weight: 110 kg Allergies Allergy/AdvReac Type Severity Reaction Status Date / Time levofloxacin Allergy Intermediate Rash Verified 09/10/24 14:33 sunflower seed Allergy Mild Swelling Verified 09/10/24 14:33 of Lip/Tongue/Throat cefuroxime Allergy Unknown rash Verified 09/10/24 14:33 Home Medications ?Medication ?Instructions ?Recorded ?Confirmed ?Type aspirin 325 mg tablet 325 mg PO DAILY 06/03/19 09/10/24 History multivitamin with minerals-folic 1 tablet PO DAILY 11/12/22 09/10/24 History acid 0.4 mg tablet atorvastatin 80 mg tablet 80 mg PO DAILY #90 tabs 12/08/23 09/10/24 Rx lansoprazole 30 mg capsule,delayed 30 mg PO DAILY #90 caps 07/13/24 09/10/24 Rx release carica papaya 1 tablet PO .qd 08/24/24 09/10/24 History hydrocodone 7.5 mg-acetaminophen 1 tablet PO Q6H PRN pain #120 tabs 09/06/24 09/10/24 Rx 325 mg tablet albuterol sulfate 90 mcg/actuation 1 inh inhalation Q4H PRN shortness 09/15/24 Rx aerosol inhaler (Ventolin HFA) of breath or wheezing #8.5 grams Laboratory Tests 09/21/24 09:33 Urine Color Yellow (Yellow) Urine Appearance Clear (Clear) Urine pH 5.5 (5.0-9.0) Ur Specific [place] 1.016 (1.001-1.035) Urine Protein Negative mg/dL (Negative) Urine Glucose (UA) Negative mg/dL (Negative) Urine Ketones Negative mg/dL (Negative) Ur Blood (Man) Negative (Negative) Urine Nitrate Negative (Negative) Urine Bilirubin Negative (Negative) Urine Urobilinogen 0.2 mg/dL (<2.0) Leukocyte Esterase Rfl Negative TRISTIN/UL (Negative) Patient hx anesthesia problems: none Family hx anesthesia problems: none Results Review: All pre-operative results and documents have been reviewed as part of the pre-operative evaluation. [facility] Past Medical History Medical History Foreign body hand Polyuria Polyarthritis Tonsillectomy planned Fracture of one rib, right side, initial encounter for closed fracture Anxiety about health Scl-70 antibody positive Diastasis recti Swelling of joint, hand, left Colon cancer screening Diabetes type 2, controlled Choking Cervical pain Tremor of both hands Muscle spasm Bilateral knee pain Bilateral hip pain Chronic headache Diarrhea Bilateral hand swelling Foot pain, bilateral Elevated glucose Elevated alanine aminotransferase (ALT) level Lump Neuropathy Mixed hyperlipidemia Degenerative lumbar disc Low testosterone Surgical History Surgical History Hx of hernia repair Hx of thumb surgery Family History Family History Father Diabetes mellitus Carcinoma of colon Malignant neoplasm of prostate Bone cancer Mother Leukemia Sibling Bone cancer Other Cerebrovascular accident Family history of arthritis Family history of coronary artery disease Hypertension Social History Social History Smoking packs per day: 1 Smoking cigarettes per day: 20.0 Years smoked: 16 Smoking pack-years: 16.00 Smoking status: Former smoker Tobacco type: cigarettes Second hand tobacco smoke exposure: Yes Smoking end date: 12/28/10 Alcohol intake: current Substance use: never Substance use type: does not use Do You Feel Safe in your Home?: Yes Lack of Transportation: No Lack of Food: Never True Current Housing: I Have Housing Concerned About Future Housing: No Difficulty Paying Gas/Electric Bills: No Difficulty Paying for Meds: No Currently Unemployed: No Education: High School Diploma/GED Difficulty w/ Childcare or Family Care: No Living arrangements: with family Additional living arrangements comments: Occupation/Education: retired 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 Gender identity (if verbalized by the patient): Male Spiritual care concerns: No Anes - Eval Final PreProcedure Day of Procedure 09/21/24 10:17 Patient weight: obese Lungs: normal air movement Airway: Mallampati scale class II and special considerations (Missing several bottom R aspect. None loose. ) Neurological: alert and oriented Last oral intake: >/= 8 hours ASA classification: III Emergent: no Anesthetic plan: proceed Anesthesia type and monitoring: general GIVS and standard monitoring Results Review: All pre-operative results and documents have been reviewed as part of the pre-operative evaluation. Hyperlipidemia, remote hx afib, s/p cardioversion around the time he was ill w spinal meningitis. Ex smoker, quit . Hx of narcotic use since back issue, hydrocodone approx 3 tabs/day. Informed Consent: The patient's anesthetic plan and its attendant risks and benefits were discussed with the patient/family/POA. Questions were solicited and answers provided to the satisfaction of the patient/family/POA.
[2024-09-21] MEDS: ceFAZolin 2 GM/D5W 50 ML 2 GM/50 ML BAG IVPB (10:29)
[2024-09-21] MEDS: LACTATED RINGERS 1,000 ML 30 ML IV CONT (10:42)
--- NOTE | 2024-09-21 10:42 | P.OP_ITS ---
Procedure Note - Detailed Date of Procedure 09/21/24 Pre-op Diagnosis elevated PSA Post-op Diagnosis Same Procedure Performed Uronav us and prostate biopsy Surgeon Samy Dickey MD Anesthesia General Description of Procedure Patient is taken the operative suite correctly identified. Once he was placed i n lateral decubitus position and given anesthesia transrectal ultrasound probe was inserted. The MRI image was fused to the ultrasound. The patient had 3 regions of interest. Three cores were taken from each region. A standard 12 core biopsy was then performed. Patient tolerated procedure well without any complications and was taken recovery stable condition. He will call for path results in 1 week. This completes dictation. Please send a copy of op note to my office. Estimated Blood Loss 0 Drains No Packing No Pathology Yes Complications No immediate complications Condition Stable Disposition PACU
[2024-09-21 10:47] VITALS: BP 136/70; PULSE 72; RESP 16; O2SAT 95
[2024-09-21 11:15] VITALS: BP 137/71; PULSE 66; RESP 16
[2024-09-21] MEDS: oxyCODONE HCL (*CRX) 5 MG TAB IR PO (11:15)
[2024-09-21 11:33] VITALS: BP 141/69; PULSE 68; RESP 16
== END 2024-09-21 11:40 | disposition home or self-care (01) ==
PROVIDERS: PCP Family Medicine; Visit Provider Urology
PROC: (CPT 55700; principal; 2024-09-21 11:15)
DX: C61 Malignant neoplasm of prostate (principal); R97.20 Elevated prostate specific antigen [PSA]; E11.9 Type 2 diabetes mellitus without complications; F41.9 Anxiety disorder, unspecified; R25.1 Tremor, unspecified; M62.838 Other muscle spasm; R51.9 Headache, unspecified; M51.369 Other intervertebral disc degeneration, lumbar region without mention of lumbar back pain or lower extremity pain; G62.9 Polyneuropathy, unspecified; E29.1 Testicular hypofunction; E66.9 Obesity, unspecified; Z68.32 Body mass index [BMI] 32.0-32.9, adult; Z79.891 Long term (current) use of opiate analgesic; Z79.82 Long term (current) use of aspirin; Z79.51 Long term (current) use of inhaled steroids; Z98.890 Other specified postprocedural states; Z98.1 Arthrodesis status; Z87.891 Personal history of nicotine dependence; Z80.42 Family history of malignant neoplasm of prostate; Z80.0 Family history of malignant neoplasm of digestive organs; Z80.8 Family history of malignant neoplasm of other organs or systems; Z80.6 Family history of leukemia; Z82.49 Family history of ischemic heart disease and other diseases of the circulatory system
CPT/HCPCS: 76872; 55700; 81003; A9270; G0416; J0690; J2003; J2405; J2704; J3010; J7120

== ENCOUNTER 2024-10-07 13:35 | Outpatient (CLI) | payer MEDICARE, MEDICAID, SELFPAY ==
--- NOTE | ~2024-10-07 | PE_ITS ---
EXAMINATION: PET_PETPSMAST_PT DATE: 10/07/2024 15:44 INDICATION: Prostate cancer TECHNIQUE: 4.58 mCi of Illucix Ga-68(65-Sp-[id number]) was administered i.v. Low dose computed tomog elisa (CT) images were acquired from the base of the brain to the base of the brain to the proximal t highs for attenuation correction and anatomic localization. Positron emission tomography (PET) images were acquired in the same distribution beginning 80 minutes after injection. Images including fused PET/CT images were reconstructed in axial, coronal, and sagittal planes. Automated exposure control t echnique was employed. The dose-length product was 1311.00mGy-cm. COMPARISON: None FINDINGS: Head/neck: Typical pattern of symmetric physiologic increased activity in the lacrimal, parotid and submandibula r glands as well as along the mucosa of the nasal and oral cavities, pharynx and hypopharynx. No path ologically enlarged cervical lymphadenopathy or suspicious foci of increased uptake in the visualized head or neck. Chest: Mild peripheral pleural-parenchymal scarring at the bilateral apices. This may account for a 10 mm hurt bpleural irregular nodular opacity at the posterior lateral left apex which without pacemaker activit y. No other suspicious pulmonary nodules, pneumonia, pulmonary edema or pleural effusion. Heart size is normal. No pericardial effusion. Thoracic aorta is normal in caliber. No pathologically enlarged o r PSMA avid thoracic lymphadenopathy. Abdomen/pelvis/proximal thighs: Physiologic renal accumulation and excretion of activity in the kidneys, bladder and along portions o f ureters. Small focus of increased uptake with maximal SUV of 13.3 concerning for primary prostate c ancer at the right posterior aspect of the enlarged prostate which measures 4.8 x 4.2 cm. Normal degr ee and slightly heterogenous pattern of increased uptake throughout the liver and spleen without radi ologic correlate or dominant PSMA avid lesion. The gallbladder, pancreas and bilateral adrenal glands are normal. Moderate uptake scattered throughout the bowels with typical duodenal and proximal jejun al predominance and without radiologic correlate, also likely physiologic. No other abnormal foci of increased uptake or pathologically enlarged lymphadenopathy in the abdomen, pelvis or proximal thighs . Musculoskeletal: Severe degenerative disc disease at L5-S1. Otherwise mild spondylosis the remainder of the spine. No suspicious lytic, blastic or abnormally PSMA avid bone lesions. IMPRESSION: 1. Small focus of moderate increased activity at the right posterior aspect of the enlarged prostate consistent with primary prostate cancer. No lesion suspicious for metastatic disease. Reviewed, dictated and finalized at location B. IMPRESSION: 1. Small focus of moderate increased activity at the right posterior aspect of the enlarged prostate consistent with primary prostate cancer. No lesion suspic ious for metastatic disease.
--- OUTSIDE RECORDS SUMMARY | 2024-10-07 14:05 | XMS_ITS | Clinical Summary ---
Author Organization [facility] Address [address] 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
--- OUTSIDE RECORDS SUMMARY | 2024-10-07 14:05 | XMS_ITS | Clinical Summary ---
Author Organization [facility] Address [facility] [place] [address] Care Team Providers Care Clean Up Supervisor Name Role Phone Manish Hamlin MD Primary Care Provider [phone] Allergies Active Allergy Reactions Criticality Noted Date Comments Levofloxacin Hives Medium 12/03/2023 [place] Oil Hives Medium 12/03/2023 Seeds Medications aspirin [...] C 1972 DTaP, Tdap and Td Vaccines ( 1 - Tdap) 1973 Zoster Vaccines (1 of 2) 2004 AAA SCREENING 10/25/2019 Annual Medicare Wellness Visit 10/25/2019 Pneumococcal Vaccine: 65+ Ye ars (2 of 2 - PCV) 04/15/2021 04/15/2020 COVID-19 Vaccine (1 - 2023-2 5 season) 2024 PHQ-2 (Physician [place]) 06/30/2024 01/28/2024 RSV Immunization or 60+ Years (1 [...] patient's age to complete this topic Insurance [facility] Care Teams Clean Up Supervisor Relationship Specialty Start Date End Date Manish Hamlin MD [address] [place] [address] PCP - General FAMILY PRACTICE 12/03/23
--- OUTSIDE RECORDS SUMMARY | 2024-10-07 14:05 | XMS_ITS | Clinical Summary ---
Author Organization [facility] [address] Address [address] [place] [address] Care Team Providers Care Glass Unloading Equipment Tender Name Role Phone Manish Hamlin MD Primary Care Provider [phone] Allergies Active Allergy Reactions Criticality Noted Date Comments Cefuroxime Rash Medium Fenofibrate Unknown Low Levofloxacin Rash Medium Medications aspirin 325 mg tablet take 1 tablet by oral route every day 0 0 06/03/2016 Active lansoprazole (PREVACID) 30 mg capsule 12/20/2020 Active atorvastatin (LIPITOR) 80 mg tablet 12/11/2020 Active [id number]-chxd -Lmfolate-algal 27 mg iron-1.13 mg-581.92 mg capsule Take by mouth Active rfheb-9-zpc-epa -dpa-fish oil 1,050-1,200 mg capsule 1 capsule Active HYDROcodone-jarred taminophen (NORCO) 7.5-325 mg per tablet 06/05/2023 Activ e psyllium seed, with sugar, (FIBER ORAL) Take by mouth Active Active Problems Problem Noted Date Diagnosed Date Gastroesophageal reflux disease without esophagi tis 01/30/2016 Overview (10/04/2016): GERD without esophagitis Atrial flutter 01/30/2016 Overview (10/04/2016): Atrial flutter, unspecified type Chronic osteoarthritis 01/30/2016 Overview (10/04/2016): Chronic osteoarthritis Dyslipidemia 01/30/2016 Overview (10/04/2016): Mixed dyslipidemia Atrial fibrillation and flutter 01/30/2016 Overview (10/04/2016): Atrial fibrillation status post cardioversion Chest pain 01/30/2016 Overview (10/04/2016): Chest pain in adult Anxiety 10/21/2011 Cephalalgia 07/17/2011 Overview (10/09/2017): Description: post viral Medication overuse headache 07/17/2011 Overview (10/09/2017): Description: [place] Atypical migraine 07/17/2011 Medical History Medical History Date Comments High cholesterol 2011 Meningitis spinal 2011 A-fib (HCC) 2010 Family History Medical History Relation Name Comments Bone cancer Brother 2 Cancer, bone; C ause of : Cancer, bone Other Father Unknown; Leukemia Mother Leukemia; Cause of : Leukemia Relation Name Status Comments Brother 1 (Age 61) Brother 2 Father Mother (Age 80) Social History Tobacco Use Types Packs/Day Years Used Date Smoking Tobacco: Former Smokeless Tobacco: Never Tobacco Cessation:Counseling Given: Not Answered Alcohol Use Standard Drinks/Week Comments No 0 (1 standard drink = 0.6 oz pur e alcohol) Sex and Gender Information Value Date Recorded Sex Assigned at Not on file Legal Sex Male 4:09 AM 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 Gender Identity Not on file Sexual Orientation Not on file Obstetrics History Last Filed Vital Signs Vital Sign Reading Time Taken Comments Blood Pressure 133/75 06/11/2023 3:20 PM 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 Pulse 76 06/11/2023 3:20 PM 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 Temperature 36.9 C (98.5 F) 06/11/2023 3:20 PM 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 Respiratory Rate 16 08/21/2017 9:53 AM 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 Oxygen Saturation 96% 06/11/2023 3:20 PM 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 Inhaled Oxygen Concentration - - Weight 109.9 kg (242 lb 3.2 oz) 06/11/2023 3:20 PM 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 Height 182.9 cm (6') 06/11/2023 3:20 PM 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 Body Mass Index 32.85 06/11/2023 3:20 PM 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 Plan of Treatment Health Maintenance Due Date Last Done Comments Colon Cancer Screening-Colonoscopy 1954 Depression Screening 1954 Fall Risk Assessment 1954 Hepatitis C Screening 1954 Prostate Cancer Screening-PSA 1954 DTaP/Tdap/Td Vaccine (1 - Tdap) 1965 Hepatitis B Screening 1972 Zoster Vaccine (1 of 2) 2004 Abdominal Aortic Aneurysm (A AA) Screen 10/25/2019 Well Visit 65+ 10/25/2019 Pneumococcal vaccine 65+ (2 of 2 - PCV) 04/15/2021 04/15/2020 Influenza Vaccine (#1) 2024 0, 05/07/2019, 05/01/2018, Additional history exists Insurance [facility] Address: [facility] [address] [place] [address] MEDICARE ADVANTAGE [facility] Address: [address] [address] [place] [address] UHC MEDICARE ADVANTAGE [facility] Address: [address] [address] [place] [address] Care Teams Glass Unloading Equipment Tender Relationship Specialty Start Date End Date Manish Hamlin MD PCP - General 02/14/16
--- OUTSIDE RECORDS SUMMARY | 2024-10-07 14:05 | XMS_ITS | Encounter Summary ---
Author Organization [facility] Address 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
--- OUTSIDE RECORDS SUMMARY | 2024-10-07 14:05 | XMS_ITS | Encounter Summary ---
Author Organization [facility] Address [address] [place] [address] Phone Care Team Providers Care Trimmer And Borer Machine Operator Name Role Phone Manish Hamlin MD Primary Care Provider Encounter Details Date Type Department Care Team (Late st Contact Info) Description 07/03/2023 Orders Only [facility] Scanning, Provider Social History Tobacco Use Types Packs/Day Years Used Date Smoking Tobacco: Former Smokeless Tobacco: Never Alcohol Use Standard Drinks/Week Comments No 0 (1 standard drink = 0.6 oz pur e alcohol) Sex and Gender Information Value Date Recorded Sex Assigned at Not on file 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 Gender Identity Not on file Sexual Orientation Not on file documented as of this encounter Plan of Treatment Not on file documented as of this encounter Procedures Procedure Name Priority Date/Time Associated Diagnosis Comments SCAN - RADIOLOGY/IMAGING 07/03/2023 documented in this encounter Results * SCAN - RADIOLOGY/IMAGING (07/03/2023) Anatomical Region Laterality Modality Other us Provider Scanning Edited Result - Final documented in this encounter Visit Diagnoses Not on filedocumented in this encounter Care Teams Trimmer And Borer Machine Operator Relationship Specialty Start Date End Date Manish Hamlin MD PCP - General 02/14/16 documented as of this encounter
--- OUTSIDE RECORDS SUMMARY | 2024-10-07 14:05 | XMS_ITS | Encounter Summary ---
Author Organization [facility] Address 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
--- OUTSIDE RECORDS SUMMARY | 2024-10-07 14:05 | XMS_ITS | Continuity of Care Document ---
Author Organization [facility] Address [address] [place] [address] Phone Care Team Providers Care Cafeteria Monitor Name Role Phone Administrative, Provider Unavailable Unavail able Procedures Procedure Date Medical Record Copy Medical Record Copy Per Page Affidavit Advance Directives Directive Yes / No Effective Date File Name No Information Encounters Encounter Description Practice Location Reason(s) For Visit Diagnoses Date Provider Providers Copied on Encounter [facility], [address] [place], [place] [address] [place], [place], [id number], [place] tel:[phone] [facility] No Information 0 Administrative Provider. [address] [place] [address], [facility] [address], [place], [place], [id number], [place]. tel:[phone] Family History Family Member Type Diagnosis Age At Onset No Information Payers Payer name Insurance type Covered libertarian ID Authoriza tion(s) No Information Social History [...]
--- OUTSIDE RECORDS SUMMARY | 2024-10-07 14:05 | XMS_ITS | Referral Summary ---
Author Organization [facility] [address] Address [address] [place] [address] Care Team Providers Care Stereo Map Plotter Operator Name Role Phone Manish Hamlin MD Primary Care Provider Allergies Active Allergy Reactions Criticality Noted Date Comments Cefuroxime Rash Medium Fenofibrate Unknown Low Levofloxacin Rash Medium Medications aspirin 325 mg tablet take 1 tablet by oral route every day 0 0 06/03/2016 Active lansoprazole (PREVACID) 30 mg capsule 12/20/2020 Active atorvastatin (LIPITOR) 80 mg tablet 12/11/2020 Active lufltgzb51-ahsd -Lmfolate-algal 27 mg iron-1.13 mg-581.92 mg capsule Take by mouth Active dbmeq-7-bsy-epa -dpa-fish oil 1,050-1,200 mg capsule 1 capsule [...] Medication overuse headache 07/17/2011 Overview (10/09/2017): Description: [place] Atypical migraine 07/17/2011 Social History Tobacco Use Types Packs/Day Years Used Date Smoking Tobacco: Former Smokeless Tobacco: Never Tobacco Cessation:Counseling Given: Not Answered Alcohol Use Standard Drinks/Week Comments No 0 (1 standard drink = 0.6 oz pur e alcohol) Sex and Gender Information Value Date Recorded Sex Assigned at Not on file Legal Sex Male 4:09 AM OTOLARYNGOLOGY REP Gender Identity Not on file Sexual Orientation Not on file Last Filed Vital Signs Vital Sign Reading Time Taken Comments Blood Pressure 133/75 06/11/2023 3:20 PM OTOLARYNGOLOGY REP Pulse 76 06/11/2023 3:20 PM OTOLARYNGOLOGY REP Temperature 36.9 C (98.5 F) 06/11/2023 3:20 PM OTOLARYNGOLOGY REP Respiratory Rate 16 08/21/2017 9:53 AM OTOLARYNGOLOGY REP Oxygen Saturation 96% 06/11/2023 3:20 PM OTOLARYNGOLOGY REP Inhaled Oxygen Concentration - - Weight 109.9 kg (242 lb 3.2 oz) 06/11/2023 3:20 PM OTOLARYNGOLOGY REP Height 182.9 cm (6') 06/11/2023 3:20 PM OTOLARYNGOLOGY REP Body Mass Index 32.85 06/11/2023 3:20 PM OTOLARYNGOLOGY REP Plan of Treatment Not on file Insurance MEDICARE ADVANTAGE MEDICARE ADVANTAGE [facility] Address: [id number] [place] [address] MEDICARE ADVANTAGE Care Teams Stereo Map Plotter Operator Relationship Specialty Start Date End Date Manish Hamlin MD [facility] - General 02/14/16
== END 2024-10-07 13:36 | disposition home or self-care (01) ==
PROVIDERS: PCP Family Medicine; Visit Provider Urology
DX: C61 Malignant neoplasm of prostate (principal)
CPT/HCPCS: 78815; A9596

== ENCOUNTER 2025-03-31 12:31 | Outpatient (CLI) | payer MEDICARE, MEDICAID, SELFPAY ==
--- OUTSIDE RECORDS SUMMARY | 2010-03-11 19:00 | XMS_ITS | Continuity of Care Document ---
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 [address] [place] [address], [facility] [address], [place], [place], [id number], [place]. tel:[phone] Family History Family Member Type Diagnosis Age At Onset No Information Payers Payer name Insurance type Covered green party ID Authoriza tion(s) No Information Social History Type Description Quantity Date Captured Comments Sex Male Smoking Status No Information Chief Complaint And Reason For Visit No Information Reason For Referral Reason For Referral No Information History Of Present Illness Encounter Date Complaint History Of Prese nt Illness No Information Functional Status Date Functional Assessmen t No Information Instructions Date Instruction Additional Infor mation No Information Assessments Type Assessment Date No Information Patient Care Teams Name Effective Dates (start - stop) Status Members No Information
--- OUTSIDE RECORDS SUMMARY | 2025-03-31 12:34 | XMS_ITS | Encounter Summary ---
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 Gender Identity Not on file Sexual Orientation [...] Diagnoses Not on filedocumented in this encounter Additional Health Concerns Infection Onset Date Last Indicated Resolved Time MDR gram neg/ESBL 03/01/2025 03/01/2025 documented as of this encounter Care Teams Reconciliation Clerk Relationship Specialty Start Date End Date Manish Hamlin MD PCP - General 02/14/16 12/02/24 Manish Hamlin MD [address] [address] PCP - General Family Medicine 12/03/24 Giovany Cardenas MD [address] [place] [address] Consulting Physician Surgery 12/21/24 documented as of this encounter
--- OUTSIDE RECORDS SUMMARY | 2025-03-31 12:34 | XMS_ITS | Clinical Summary ---
Author Organization [facility] [address] Address [address] [place] [address] Care Team Providers Care License Inspector Name Role Phone Manish Hamlin MD Primary Care Provider Giovany Cardenas MD Unavailable Allergies Active Allergy Reactions Criticality Noted Date Comments Cefuroxime Rash Medium Fenofibrate Unknown Low Levofloxacin Rash Medium [place] Oil Hives Medium 12/03/2023 Seeds Medications lansoprazole (PREVACID) 30 mg capsule Take 1 capsule (30 mg total) by mouth every morning 1 Active atorvastatin (LIPITOR) 80 mg tablet Take 1 tablet (80 mg total) by mouth every morning 1 Active [id number] -Lmfolate-algal 27 mg iron-1.13 mg-581.92 mg capsule Take 1 tablet by mouth every morning Active HYDROcodone-jarred taminophen (NORCO) 7.5-325 mg per tablet Take 1 tablet by mouth every 6 (six) hours as needed 3 Active UNABLE TO FIND Take 1 each by mouth every morning Med Name: Papaya Active calcium carbonate (TUMS) 500 mg (200 mg elemental calcium) chewable tablet Take 1 tablet/chew tab (500 mg total) by mouth 3 (three) times a day as needed for indigestion or heartburn Active aspirin 325 mg enteric coated tablet Take 1 tablet (325 mg total) by mouth every morning Active empagliflozin (JARDIANCE) 25 mg tablet Take 1 tablet (25 mg total) by mouth daily Active oxyCODONE (ROXICODONE) 5 mg immediate release tabletIndicatio ns:Pain Take 1 tablet (5 mg total) by mouth every 6 (six) hours as needed for pain 12 tablet 5 Active nitrofurantoin monohydrate (MACROBID) 100 mg capsule Take 1 capsule (100 mg total) by mouth 2 (two) times a day for 7 days 14 capsule 5 03/31/20 25 Active nitrofurantoin monohydrate (MACROBID) 100 mg capsuleIndicati ons:Acute cystitis without hematuria Take 1 capsule (100 mg total) by mouth 2 (two) times a day for 14 days 28 capsule 5 03/17/20 25 Active Problems Problem Noted Date Diagnosed Date Prostate cancer 11/08/2024 Gastroesophageal reflux disease without esophagi tis 01/30/2016 [...] Medication overuse headache 07/17/2011 Overview (10/09/2017): Description: Foster Atypical migraine 07/17/2011 Encounters Date Type Department Care Team Description 03/30/2025 Results Follow-Up [facility] Urology [address] [place] [address] [facility] [address] [place] [phone] Giovany Cardenas MD Urine culture Urine, clean voided 03/24/2025 12:25 PM CDT - 03/24/2025 11:59 PM CDT Hospital Encounter [address] [id number] Acute cystitis without hematuria; Malignant neoplasm of prostate (HCC) Discharge Disposition: Discharge to home or self care 03/24/2025 11:40 AM CDT Office Visit [facility] Urology [address] [place] [address] [place] [phone] Giovany Cardenas MD Acute cystitis without hematuria (Primary Dx); Malignant neoplasm of prostate (HCC) 03/18/2025 Results Follow-Up [facility] Urology [address] [place] [address] [place] [phone] Giovany Cardenas MD PSA diagnostic 03/17/2025 2:15 PM CDT Lab [address] [address] Acute cystitis without hematuria; Malignant neoplasm of prostate (HCC) 03/04/2025 Results Follow-Up [facility] Urology [address] [place] [address] [place] [phone] Giovany Cardenas MD Urine culture Urine, bladder 03/03/2025 11:40 AM CDT Office Visit [facility] Urology [address] [place] [address] [address] [place] [phone] Giovany Cardenas MD Malignant neoplasm of prostate (HCC) (Primary Dx); Acute cystitis without hematuria 03/01/2025 2:50 PM CDT Lab [address] [address] Urinary tract infection with hematuria, site unspecified 02/25/2025 Orders Only [facility] Urology [address] [facility] Office [facility] [address] [place] [address] Giovany Cardenas MD Urinary tract infection with hematuria, site unspecified (Primary Dx) 02/02/2025 Results Follow-Up [facility] Urology [address] [facility] [address] [place] [address] Giovany Cardenas MD Urine culture Urine, bladder 01/28/2025 Orders Only [facility] U[facility] [address] [place] [phone] Giovany Cardenas MD 01/24/2025 3:00 PM CDT Lab [facility] Outpatient Lab at [address] [phone] 01/24/2025 2:59 PM CDT - 01/24/2025 11:59 PM CDT Hospital Encounter [address] [address] Urinary tract infection without hematuria, site unspecified Discharge Disposition: Discharge to home or self care 01/21/2025 Orders Only [facility] [address] [place] [phone] Giovany Cardenas MD Urinary tract infection without hematuria, site unspecified (Primary Dx) 01/05/2025 Telephone [facility] Office [facility] [address] [place] [phone] Laure Fontanez from Last 3 Months Surgical History Surgery Date Site/Laterality Comments TONSILLECTOMY LUMBAR DISCECTOMY UMBILICAL HERNIA REPAIR UPPER GASTROINTESTINAL ENDOSCOPY Medical History Medical History Date Comments High cholesterol 2012 Meningitis spinal 2011 A-fib (HCC) 2011 Tinnitus, bilateral chronic Migraines Obesity GERD (gastroesophageal reflux disease) Prostate cancer (HCC) Urticaria DM2 (diabetes mellitus, type 2) Family History Medical History Relation Name Comments [...] drink = 0.6 oz pur e alcohol) AUDIT-C Answer Date Recorded Q1: How often do you have a drink containing alc ohol? Monthly or less 12/02/2024 Q2: How many drinks containi ng alcohol do you have on a typical day when you are drinking? 1 or 2 12/02/2024 Q3: How often do you have si x or more drinks on one occasion? Never 12/02/2024 Personal Safety Answer Date Recorded Have you ever been in or are you currently in a harmful physical or emotional relationship or is someone making you feel afraid or unsafe? 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 Gender Identity Not on file Sexual Orientation Not on file Obstetrics History Last Filed Vital Signs Vital Sign Reading Time Taken Comments Blood Pressure 133/61 12/21/2024 12:07 PM CDT Pulse 80 12/21/2024 12:07 PM CDT Temperature 37.1 C (98.7 F) 12/21/2024 12:07 PM CDT Respiratory Rate 16 12/21/2024 12:07 PM CDT Oxygen Saturation 94% 12/21/2024 12:07 PM CDT Inhaled Oxygen Concentration - - Weight 105 kg (231 lb 7.7 oz) 12/20/2024 1:31 PM CDT Height 182.9 cm (6') 12/20/2024 6:50 AM CDT Body Mass Index 31.39 12/20/2024 6:50 AM CDT Plan of Treatment Health Maintenance Due Date Last Done Comments Colon Cancer Screening-Colonoscopy 1955 Depression Screening 1955 Hepatitis C Screening 1955 DTaP/Tdap/Td Vaccine (1 - Tdap) 1965 Hepatitis B Screening 1972 Zoster Vaccine (2 of 3) 07/06/2012 05/11/2012 Abdominal Aortic Aneurysm (A AA) Screen 10/25/2019 Well Visit 65+ 10/25/2019 Pneumococcal vaccine 65+ (2 of 2 - PCV) 04/15/2021 04/15/2020 Influenza Vaccine (#1) 2025 0, 05/07/2019, 05/01/2018, Additional history exists Fall Risk Assessment 12/21/2025 12/21/2024 Prostate Cancer Screening-PSA Discontinued 03/17/2025 Procedures Procedure Name Priority Date/Time Associated Diagnosis Comments URINE CULTURE Routine 03/24/2025 4:54 PM CDT Acute cystitis without hematuria Malignant neoplasm of prostate (HCC) PSA DIAGNOSTIC Routine 03/17/2025 2:35 PM CDT Malignant neoplasm of prostate (HCC) URINE CULTURE Routine 03/17/2025 2:31 PM CDT Acute cystitis without hematuria URINE CULTURE Routine 03/01/2025 2:56 PM CDT Urinary tract infection with hematuria, site unspecified URINE CULTURE Routine 01/24/2025 2:59 PM CDT Urinary tract infection without hematuria, site unspecified from Last 3 Months Results * Urine culture Urine, clean voided (03/24/2025 4:54 PM CDT) Report Final Report: Less than 100,000 colonies/mL (clinically insignificant growth based on current clinical standards) Organism (CLINICALLY INSIGNIFICANT GROWTH [facility] Urine, clean voided 03/24/2025 4:54 PM CDT 03/24/2025 5:59 PM CDT Narrative [facility] - 03/25/2025 7:31 PM CDT Testing performed by [facility] ([phone]) us Giovany Cardenas MD LAB MICROBIOLOGY - NERAL ORDERABLES Final Result [facility] Department [place] [address] * PSA diagnostic (03/17/2025 2:35 PM CDT) PSA-Total <0.10 <=6.20 ng/mL Comment: Interpretive Data AGE SEX REFERENCE INTERVAL 0 minutes-150 years Female None 0 minutes-49 years Male None 50-59 years Male 0-3.90 60-69 years Male 0-5.40 70-79 years Male 0-6.20 80-150 years Male 0-6.20 The Troy PSA Total assay procedure was used. Results from different manufacturers or methods may not be comparable. Serial testing should be performed using the same method. Current interpretive data last revised 21. Blood 03/17/2025 2:35 PM CDT 03/17/2025 6:20 PM CDT Giovany Cardenas MD LAB BLOOD ORDERABLES Final Result Performing Organization Address City/[facility] Co de Phone Number [address] [place] [address] * Urine culture Urine, clean voided (03/17/2025 2:31 PM CDT) Report Final Report: Less than 100,000 colonies/mL (clinically insignificant growth based on current clinical standards) Comment:Testing performed by : [facility], [address] [facility], [place]., [address] Organism (CLINICALLY INSIGNIFICANT GROWTH [facility] Urine, clean voided 03/17/2025 2:31 PM CDT 03/17/2025 8:11 PM CDT Narrative [facility] - 03/19/2025 8:34 AM CDT Testing performed by [facility] ([phone]) Giovany Cardenas MD LAB MICROBIOLOGY - GE NERAL ORDERABLES Final Result Performing Organization Address City/[facility]/ZIP Co de Phone Number MONICA[address] [place] [address] * (ABNORMAL) Urine culture Urine, bladder (03/01/2025 2:56 PM CDT) Report Final Report: Greater than or equal to 100,000 colonies/mL of Klebsiella pneumoniae The susceptibility pattern of this Klebsiella pneumoniae indicates the possible production of an extended spectrum beta lactamase (ESBL). Patients infected with ESBL-producing organisms require contact isolation precautions. For therapeutic options for this organism, please contact infectious diseases. (.) Comment:Testing performed by : [facility], [address] [facility] [place] [address] Organism KLEBSIELLA PNEUMONIAE [facility] Urine, bladder 03/01/2025 2: 56 PM CDT 03/01/2025 8:26 PM CDT Narrative [facility] - 03/04/2025 12:43 PM CDT Testing performed by [facility] ([phone]) Organism Antibiotic Method Susceptibility Klebsiella pneumoniae Ampicillin INTERPRETATION Resistant Klebsiella pneumoniae Cefazolin INTERPRETATION Resistant Klebsiella pneumoniae Nitrofurantoin INTERPRETATION Susceptible Klebsiella pneumoniae Gentamicin INTERPRETATION Susceptible Klebsiella pneumoniae Trimethoprim with Sulfamethoxazole INTERPRETATION Resistant Klebsiella pneumoniae Meropenem INTERPRETATION Susceptible Klebsiella pneumoniae Cefepime INTERPRETATION Susceptible Klebsiella pneumoniae Ciprofloxacin INTERPRETATION Intermediate Klebsiella pneumoniae Ceftazidime INTERPRETATION Susceptible Klebsiella pneumoniae Ceftriaxone INTERPRETATION Resistant Klebsiella pneumoniae Cephalexin INTERPRETATION Resistant Klebsiella pneumoniae Cefuroxime-axetil INTERPRETATION Resistant Klebsiella pneumoniae Cefdinir INTERPRETATION Resistant Klebsiella pneumoniae Amikacin INTERPRETATION Susceptible Klebsiella pneumoniae Aztreonam INTERPRETATION Susceptible Klebsiella pneumoniae Imipenem INTERPRETATION Susceptible Klebsiella pneumoniae Ertapenem INTERPRETATION Susceptible Klebsiella pneumoniae Minocycline INTERPRETATION Susceptible Klebsiella pneumoniae Tobramycin INTERPRETATION Susceptible Klebsiella pneumoniae Levofloxacin INTERPRETATION Susceptible Klebsiella pneumoniae Doxycycline INTERPRETATION Intermediate us Giovany Cardenas MD LAB MICROBIOLOGY - [facility] ORDERABLES Final Result [facility] [address] [facility] Department [place] [address] * (ABNORMAL) Urine culture Urine, bladder (01/24/2025 2:59 PM CDT) Report Final Report: Greater than or equal to 100,000 colonies/mL of Klebsiella pneumoniae (.) Comment:Testing performed by : [facility], [address] [place] [address] Organism KLEBSIELLA PNEUMONIAE [facility] Urine, bladder 01/24/2025 2: 59 PM CDT 01/25/2025 12:04 AM CDT Narrative [facility] - 01/27/2025 7:37 AM CDT Testing performed by [facility] ([phone]) Organism Antibiotic Method Susceptibility Klebsiella pneumoniae Ampicillin INTERPRETATION Resistant Klebsiella pneumoniae Cefazolin INTERPRETATION Susceptible Klebsiella pneumoniae Nitrofurantoin INTERPRETATION Susceptible Klebsiella pneumoniae Gentamicin INTERPRETATION Susceptible Klebsiella pneumoniae Trimethoprim with Sulfamethoxazole INTERPRETATION Susceptible Klebsiella pneumoniae Meropenem INTERPRETATION Susceptible Klebsiella pneumoniae Cefepime INTERPRETATION Susceptible Klebsiella pneumoniae Ciprofloxacin INTERPRETATION Susceptible Klebsiella pneumoniae Ceftazidime INTERPRETATION Susceptible Klebsiella pneumoniae Ceftriaxone INTERPRETATION Susceptible Klebsiella pneumoniae Piperacillin/Tazobactam INTERPRE TATION Susceptible Klebsiella pneumoniae Cephalexin INTERPRETATION Susceptible Klebsiella pneumoniae Cefuroxime-axetil INTERPRETATION Susceptible Klebsiella pneumoniae Cefdinir INTERPRETATION Susceptible Giovany Cardenas MD LAB MICROBIOLOGY - [facility] ORDERABLES Final Result [facility] [address] [address] Department [place] [address] from Last 3 Months Additional Health Concerns Infection Onset Date Last Indicated MDR gram neg/ESBL 03/01/2025 03/01/2025 Insurance [facility] MEDICARE ADVANTAGE MEDICARE ADVANTAGE MEDICARE ADVANTAGE Advance Directives For more information, please contact: [phone] Documents on File Type Date Recorded Patient Oil Expert Expl anation Advance Directives and Livin g Will 12/20/2024 6:04 AM * Full Code (Latest Code Status on File) Date Activated Date Inactivated Comments 12/20/2024 1:30 PM 12/21/2024 5:41 PM Care Teams License Inspector Relationship Specialty Start Date End Date Manish Hamlin MD [address] [place] [address] PCP - General Family Medicine 12/03/24 Giovany Cardenas MD [address] [facility] [place] [address] Consulting Physician Surgery 12/21/24
--- OUTSIDE RECORDS SUMMARY | 2025-03-31 12:34 | XMS_ITS | Clinical Summary ---
Author Organization [facility] Address [facility]ly [facility] [place] [address] Care Team Providers Care Lease Picker Name Role Phone Manish Hamlin MD Primary Care Provider [phone] Allergies Active Allergy Reactions Criticality Noted Date Comments Levofloxacin Hives Medium 12/03/2023 [place] Oil Hives Medium 12/03/2023 Seeds Medications aspirin [...] 1973 Zoster Vaccines (1 of 2) 2004 Annual Medicare Wellness Visit 10/25/2019 Pneumococcal Vaccine: 50+ Ye ars (2 of 2 - PCV) 04/15/2021 04/15/2020 PHQ-2 (Physician [place]) 06/30/2024 01/28/2024 COVID-19 Vaccine (1 - 2023-2 5 season) 2025 RSV Immunization or 60+ Years (1 - [...] to complete this topic Insurance [facility] [place] [address] Care Teams Lease Picker Relationship Specialty Start Date End Date Manish Hamlni MD [address] [address] PCP - General FAMILY PRACTICE 12/03/23
--- OUTSIDE RECORDS SUMMARY | 2025-03-31 12:34 | XMS_ITS | Encounter Summary ---
Author Organization [facility] Address [address] [facility] [address] [place] [address] Phone Care Team Providers Care Marketing Production Manager Name Role Phone Manish Hamlin MD Primary Care Provider + [phone] Giovany Cardenas MD Unavailable Encounter Details Date Type Department Care Team (Late st Contact Info) Description 03/04/2025 Results Follow-Up [facility] Medicine Urology [address] [facility] Medical Office Building [address] [place] [address] Giovany Cardenas MD [address] 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 Gender Identity Not on file Sexual Orientation Not on file documented as of this encounter Plan of Treatment Not on file documented as of this encounter Visit Diagnoses Not on filedocumented in this encounter Additional Health Concerns Infection Onset Date Last Indicated Resolved Time MDR gram neg/ESBL 03/01/2025 03/01/2025 documented as of this encounter Care Teams Marketing Production Manager Relationship Specialty Start Date End Date Manish Hamlin MD [address] [place] [address] PCP - General Family Medicine 12/03/24 Giovany Cardenas MD [address] [place] [address] Consulting Physician Surgery 12/21/24 documented as of this encounter
--- OUTSIDE RECORDS SUMMARY | 2025-03-31 12:34 | XMS_ITS | Encounter Summary ---
Author Organization [facility] Address [address] [facility] [address] [place] [address] Phone Care Team Providers Care Medical Record Retrieval Specialist Name Role Phone Manish Hamlin MD Primary Care Provider + [phone] Giovany Cardenas MD Unavailable [phone] Encounter Details Date Type Department Care Team (Late st Contact Info) Description 03/18/2025 Results Follow-Up [facility] Medicine Urology [address] [facility] Medical Office Building [address] [place] [address] Giovany Cardenas MD [address] [facility] [place] [address] PSA diagnostic Social History Tobacco Use Types Packs/Day Years [...] on file 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 Gender Identity Not on file Sexual Orientation Not on file documented as of this encounter Plan of Treatment Not on file documented as of this encounter Visit Diagnoses Not on filedocumented in this encounter Additional Health Concerns Infection Onset Date Last Indicated Resolved Time MDR gram neg/ESBL 03/01/2025 03/01/2025 documented as of this encounter Care Teams Medical Record Retrieval Specialist Relationship Specialty Start Date End Date Manish Hamlin MD [address] [place] [address] PCP - General Family Medicine 12/03/24 Giovany Cardenas MD [address] [facility] [place] [address] Consulting Physician Surgery 12/21/24 documented as of this encounter
--- OUTSIDE RECORDS SUMMARY | 2025-03-31 12:34 | XMS_ITS | Encounter Summary ---
Author Organization [facility] Address 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
--- OUTSIDE RECORDS SUMMARY | 2025-03-31 12:34 | XMS_ITS | Encounter Summary ---
Author Organization [facility] Address 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
--- OUTSIDE RECORDS SUMMARY | 2025-03-31 12:34 | XMS_ITS | Encounter Summary ---
Author Organization [facility] Address [address] [facility] [address] [place] [address] Phone Care Team Providers Care Signaling Design Engineer Name Role Phone Manish Hamlin MD Primary Care Provider + [phone] Giovany Cardenas MD Unavailable Encounter Details Date Type Department Care Team (Late st Contact Info) Description 03/30/2025 Results Follow-Up [facility] Medicine Urology [address] [place] [address] Giovany Cardenas MD [address] [facility] [place] [address] Urine culture Urine, clean voided Social History Tobacco Use Types Packs/Day Years [...] on file 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 Gender Identity Not on file Sexual Orientation Not on file documented as of this encounter Plan of Treatment Not on file documented as of this encounter Visit Diagnoses Not on filedocumented in this encounter Additional Health Concerns Infection Onset Date Last Indicated Resolved Time MDR gram neg/ESBL 03/01/2025 03/01/2025 documented as of this encounter Care Teams Signaling Design Engineer Relationship Specialty Start Date End Date Manish Hamlin MD [address] [place] [address] PCP - General Family Medicine 12/03/24 Giovany Cardenas MD [address] [place] [address] Consulting Physician Surgery 12/21/24 documented as of this encounter
--- OUTSIDE RECORDS SUMMARY | 2025-03-31 12:34 | XMS_ITS | Encounter Summary ---
Author Organization [facility] Address [address] [place] [address] Care Team Providers Care Biodiesel Operations Manager Name Role Phone Manish Hamlin MD Primary Care Provider + [phone] Manish Hamlin MD Primary Care Provider + [phone] Giovany Cardenas MD Unavailable +- [phone] Encounter Details Date Type Department Care Team (Late st Contact Info) Description 11/17/2024 Orders Only [facility] Health Information Management [address] [place] [id number] Scanning, Provider Social History Tobacco Use Types Packs/Day Years Used Date Smoking Tobacco: Former Smokeless Tobacco: Never Alcohol Use Standard Drinks/Week Comments No 0 (1 standard drink = 0.6 oz pur e alcohol) Sex and Gender Information Value Date Recorded Sex Assigned at Not on file 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 Gender Identity Not on file Sexual Orientation Not on file documented as of this encounter Plan of Treatment Not on file documented as of this encounter Procedures Procedure Name Priority Date/Time Associated Diagnosis Comments SCAN - LABS 11/17/2024 documented in this encounter Results * SCAN - LABS (11/17/2024) us Provider Scanning Final Result documented in this encounter Visit Diagnoses Not on filedocumented in this encounter Additional Health Concerns Infection Onset Date Last Indicated Resolved Time MDR gram neg/ESBL 03/01/2025 03/01/2025 documented as of this encounter Care Teams Biodiesel Operations Manager Relationship Specialty Start Date End Date Manish Hamlin MD PCP - General 02/14/16 12/02/24 Manish Hamlin MD [address] [place] [address] PCP - General Family Medicine 12/03/24 Giovany Cardenas MD [address] [address] Consulting Physician Surgery 12/21/24 documented as of this encounter
--- OUTSIDE RECORDS SUMMARY | 2025-03-31 12:34 | XMS_ITS | Clinical Summary ---
Author Organization [facility] Address [address] 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
[2025-03-31 13:27] LABS: Hematocrit 44.1 % (42.0-52.0); Hemoglobin 14.2 g/dL (14.0-18.0); Immature Granulocyte Percent A 0.7 % (0-0.5); Lymphocytes Absolute Auto 1.09 K/mm3 (0.9-3.2); Mean Corpuscular HGB Conc 32.2 g/dl (32-36); Mean Corpuscular Hemoglobin 28.9 pg (26-34); Mean Corpuscular Volume 89.8 fl (80-100); Nucleated Red Blood Cells Absolute Auto 0.000 K/mm3 (0.0-0.012); Nucleated Red Blood Cells Perc 0.0 % (0.0-0.2); Platelet Count Result 229 k/mm3 (150-375); Red Blood Count 4.91 M/mm3 (4.6-6.20); White Blood Count 7.5 K/mm3 (4.5-10.0)
[2025-03-31 13:39] LABS: INR 1.1; Prothrombin Time 13.8 Seconds (11.1-14.7)
[2025-03-31 13:40] LABS: Anion Gap 7 mmol/L (4-12); Blood Urea Nitrogen 15 mg/dL (9-20); Calcium 9.0 mg/dL (8.4-10.2); Carbon Dioxide 28 mmol/L (22-30); Chloride 103 mmol/L (98-107); Estimated Glomerular Filt Rate > 60; Glucose 134 mg/dL (65-110); Potassium 4.0 mmol/L (3.4-5.0); Sodium 138 mmol/L (137-145)
[2025-03-31 13:49] LABS: Partial Thromboplastin Time 35.8 Seconds (22.3-36.8)
== END 2025-03-31 12:32 | disposition home or self-care (01) ==
LOC: ANHGOSHLAB 12:32
PROVIDERS: PCP Family Medicine; Visit Provider Family Medicine
DX: R04.0 Epistaxis (principal); E11.9 Type 2 diabetes mellitus without complications
CPT/HCPCS: 36415; 80048; 85025; 85610; 85730